=== PATIENT | male | born 1950 | race Two or more races ===

== ENCOUNTER 2018-09-28 22:38 | Emergency (ER) | payer MEDICAID ==
[~2018-09-28] VITALS: Ht 160 cm; Wt 65.8 kg
[2018-09-28 23:43] LABS: BASO % 0 % (0-3); EOS # 0.2 x10^3/uL (0.0-0.7); EOS % 3 % (0-3); HEMATOCRIT 39.7 % (39.0-53.0); HEMOGLOBIN 13.1 g/dL (13.0-17.5); LYMPH # 2.3 x10^3/uL (1.0-4.8); LYMPH % 38 % (24-48); MEAN CORPUSCULAR HEMOGLOBIN 28 pg (25-35); MEAN CORPUSCULAR HGB CONC 33 g/dL (31-37); MEAN CORPUSCULAR VOLUME 84 fL (79-100); MONO # 0.7 x10^3/uL (0.0-1.1); MONO % 11 % (0-9); NEUT # 2.9 x10^3/uL (1.8-7.7); NEUT % 48 % (31-73); PLATELET COUNT 196 x10^3/uL (140-400); RED BLOOD COUNT 4.71 x10^6/uL (4.30-5.70); RED CELL DISTRIBUTION WIDTH 14.9 % (11.5-14.5); WHITE BLOOD COUNT 6.1 x10^3/uL (4.0-11.0)
[2018-09-28 23:54] LABS: CALCIUM 8.8 mg/dL (8.5-10.1); CREATININE 1.3 mg/dL (0.7-1.3); GFR 54.6; POTASSIUM 4.4 mmol/L (3.5-5.1)
[2018-09-29] LABS: ALBUMIN 3.5 g/dL (3.4-5.0); ALBUMIN/GLOBULIN RATIO 0.9 (1.0-1.7); TOTAL BILIRUBIN 0.2 mg/dL (0.2-1.0); TOTAL PROTEIN 7.4 g/dL (6.4-8.2)
[2018-09-29 00:21] LABS: BILIRUBIN,URINE NEGATIVE (NEG); CLARITY,URINE CLEAR; COLOR,URINE YELLOW; NITRITE,URINE NEGATIVE (NEG); PH,URINE 6.5; PROTEIN,URINE NEGATIVE (NEG-TRACE)
[2018-09-29 00:34] LABS: BACTERIA,URINE FEW /HPF (0-FEW); HYALINE CASTS, URINE OCCASIONAL /HPF; RBC,URINE 0 /HPF (0-2); SQUAMOUS EPITHELIAL CELL,UR FEW /LPF; WBC,URINE 0 /HPF (0-4)
--- NOTE | 2018-09-29 03:46 | PHYS DOC ---
Past Medical History Past Medical History: Anxiety, CVA, Dementia, Depression, Diabetes-Type II, High Cholesterol, Prostatitis, Renal Disease, Other Additional Past Medical Histor: Chronic Pain, Chronic Suicidal Ideation (JENS WEBSTER MD) Past Surgical History: Other Additional Past Surgical Histo: Unknown (JENS WEBSTER MD) Alcohol Use: None Drug Use: None (JENS WEBSTER MD) Adult General Chief Complaint Chief Complaint: SUICDAL IDEATION HPI HPI Patient is a 68 year old male with multiple medical problems who is coming in by ambulance from [facility] rehab Apparently yesterday he went to divorce court he had some bad news since that time he has been more agitated intermittently combative required Haldol at the nursing facility and also was saying that he was suicidal apparently suicidal ideation is a common problem for him he has been on intermittent basis is listed on his problem list but it became more significant and more frequent this afternoon and evening he did not have a specific plan. He also has fallen a couple times over the last few days nursing facility rehabilitation facility was not comfortable keeping him there so they sent to the emergency room for evaluation he was complaining of some mild right hip pain. Of note he does have some baseline left sided weakness and numbness due to a prior stroke on the left leg (JENS WEBSTER MD) Review of Systems Review of Systems Limited by the patient's underlying dementia. a [place] cardiac monitor was used to obtain hx and additional hx obtained from [facility] (JENS WEBSTER MD) Current Medications Current Medications Current Medications Medications (Trade) Dose Ordered Sig/Noah Start Time Stop Time Status Last Admin Dose Admin Olanzapine (ZyPREXA ZYDIS) 10 mg 1X ONCE 09/28/18 23:30 09/28/18 23:31 DC 09/28/18 00:10 10 MG (KEITHLY,HILARY T DO) Allergies Allergies Allergies Coded Allergies Type Severity Reaction Last Updated Verified No Known Drug Allergies 09/28/18 No (KEITHLY,HILARY T DO) Physical Exam Physical Exam Constitutional: Well developed, well nourished, no acute distress, non-toxic appearance. [] HENT: Normocephalic, atraumatic, bilateral external ears normal, oropharynx moist, no oral exudates, nose normal. [] Eyes: PERRLA, EOMI, conjunctiva normal, no discharge. [] Neck: Normal range of motion, no tenderness, supple, no stridor. [] Cardiovascular:Heart rate regular rhythm, no murmur [] Lungs & Thorax: Bilateral breath sounds clear to auscultation [] Abdomen: Bowel sounds normal, soft, no tenderness, no masses, no pulsatile masses. [] Skin: Warm, dry, no erythema, no rash. [] Back:paraspinous and imdline ttp around l2-3 Extremities: No tenderness, no cyanosis, no clubbing, ROM intact, no edema. [] rom of the left leg is limited by underlying cva weakness. rom right leg intact Neurologic: Alert , normal motor function, normal sensory function, no focal deficits noted. [] Psychologic: odd affect si with no planauto affect patient (JENS WEBSTER MD) Current Patient Data Vital Signs Vital Signs Date Time Temp Pulse Resp B/P (MAP) Pulse Ox O2 Delivery O2 Flow Rate FiO2 09/29/18 09:14 74 12 138/88 (105) 100 High Flow Nasal Cannula 2.0 09/28/18 22:38 98.2 98.2 (JOSEPHINE,HILARY T DO) Lab Values Laboratory Tests Test 09/28/18 23:35 09/29/18 00:05 White Blood Count 6.1 x10^3/uL (4.0-11.0) Red Blood Count 4.71 x10^6/uL (4.30-5.70) Hemoglobin 13.1 g/dL (13.0-17.5) Hematocrit 39.7 % (39.0-53.0) Mean Corpuscular Volume 84 fL (79-100) Mean Corpuscular Hemoglobin 28 pg (25-35) Mean Corpuscular Hemoglobin Concent 33 g/dL (31-37) Red Cell Distribution Width 14.9 % (11.5-14.5) H Platelet Count 196 x10^3/uL (140-400) Neutrophils (%) (Auto) 48 % (31-73) Lymphocytes (%) (Auto) 38 % (24-48) Monocytes (%) (Auto) 11 % (0-9) H Eosinophils (%) (Auto) 3 % (0-3) Basophils (%) (Auto) 0 % (0-3) Neutrophils # (Auto) 2.9 x10^3/uL (1.8-7.7) Lymphocytes # (Auto) 2.3 x10^3/uL (1.0-4.8) Monocytes # (Auto) 0.7 x10^3/uL (0.0-1.1) Eosinophils # (Auto) 0.2 x10^3/uL (0.0-0.7) Basophils # (Auto) 0.0 x10^3/uL (0.0-0.2) Sodium Level 141 mmol/L (136-145) Potassium Level 4.4 mmol/L (3.5-5.1) Chloride Level 105 mmol/L (98-107) Carbon Dioxide Level 27 mmol/L (21-32) Anion Gap 9 (6-14) Blood Urea Nitrogen 18 mg/dL (8-26) Creatinine 1.3 mg/dL (0.7-1.3) Estimated GFR (Cockcroft-Gault) 54.6 BUN/Creatinine Ratio 14 (6-20) Glucose Level 120 mg/dL (70-99) H Calcium Level 8.8 mg/dL (8.5-10.1) Total Bilirubin 0.2 mg/dL (0.2-1.0) Aspartate Amino Transferase (AST) 10 U/L (15-37) L Alanine Aminotransferase (ALT) 14 U/L (16-63) L Alkaline Phosphatase 67 U/L (46-116) Total Protein 7.4 g/dL (6.4-8.2) Albumin 3.5 g/dL (3.4-5.0) Albumin/Globulin Ratio 0.9 (1.0-1.7) L Urine Collection Type Unknown Urine Color Yellow Urine Clarity Clear Urine pH 6.5 Urine Specific [place] 1.010 Urine Protein Negative mg/dL (NEG-TRACE) Urine Glucose (UA) Negative mg/dL (NEG) Urine Ketones (Stick) Negative mg/dL (NEG) Urine Blood Negative (NEG) Urine Nitrite Negative (NEG) Urine Bilirubin Negative (NEG) Urine Urobilinogen Dipstick 1.0 mg/dL (0.2 mg/dL) Urine Leukocyte Esterase Negative (NEG) Urine RBC 0 /HPF (0-2) Urine WBC 0 /HPF (0-4) Urine Squamous Epithelial Cells Few /LPF Urine Bacteria Few /HPF (0-FEW) Urine Hyaline Casts Occasional /HPF Laboratory Tests 09/28/18 23:35 Laboratory Tests 09/28/18 23:35 (HILARY BURTON DO) EKG EKG [] (JENS WEBSTER MD) Radiology/Procedures Radiology/Procedures [] (JENS WEBSTER MD) Impressions: Monitor patient lumbar spine x-ray as well as pelvis x-ray and right hip x-ray was negative acute no obvious fracture was identified. (JENS WEBSTER MD) Course & Med Decision Making Course & Med Decision Making Pertinent Labs and Imaging studies reviewed. (See chart for details) []68 yo m mmp as noted above biba with increasing suicidal ideation frequent falls, medically clear in the emergency room labs are stable vital signs are stable x-ray imaging showed no fracture. Elbert from [facility] came in at this time patient is being presented to [facility] psych unit pt seen by elbert from [facility], awaiting placement s/o to [facility] at 6 am (JENS WEBSTER MD) Course & Med Decision Making 0944: Assumes care at approximately [address] Webster. Patient has been calm and cooperative. Patient has not require any further medications. Patient was evaluated again by Elbert from [facility]. Pt is not suicidal. Pt is alert to self/place. Elbert states that there was difficulty in evaluating thept last night 2/2 recent Haldol dosing/lack of dentures and language barrier. Pt is more alert and the interpreting process was significantly smoother. No acute medical complaints. Continued stable vital signs. No fractures. Not suicidal. Stable for d/c back to SNF. (HILARY BURTON DO) Dragon Disclaimer Dragon Disclaimer This electronic medical record was generated, in whole or in part, using a voice recognition dictation system. (JENS WEBSTER MD) Departure Departure Impression: Primary Impression: Suicidal ideation Additional Impression: Depression Disposition: 03 TRANSFER SNF Condition: IMPROVED Referrals: LISA HENSLEY MD (PCP) Patient Instructions: Depression, Adult Additional Instructions: Thank you for coming to [facility]. Please read the attached handouts. Please follow-up with your primary care physician. Return to the ER if your symptoms worsen or you have any other concerns. Problem Qualifiers JENS WEBSTER MD Sep 29, 2018 03:46 HILARY BURTON DO Sep 29, 2018 09:48
--- NOTE | 2018-09-29 05:40 | RAD ---
AP radiograph of the pelvis to include AP and lateral radiographs of the right hip 09/28/2018 CLINICAL HISTORY: Pelvic and right hip trauma. An AP digital radiograph of the pelvis was obtained. AP and lateral radiographs of the right hip were obtained. No pelvic bone fracture is seen. Both hips are intact. Mild to moderate degenerative changes are seen involving both hips, left greater than right. Calcification of the common iliac arteries and their branches is noted. IMPRESSION: No fracture or dislocation is seen. Electronically signed by: Woodrow Meade MD (09/29/2018 5:37 AM) [facility]
--- NOTE | 2018-09-29 05:42 | RAD ---
Three-view lumbar spine radiographs 09/28/2018 CLINICAL HISTORY: Trauma with low back pain. AP and 2 lateral digital radiographs of the lumbar spine were obtained. Minimal S-shaped curvature of the thoracolumbar spine is seen. No fracture or subluxation of the lumbar vertebrae seen. Degenerative changes are seen involving the facet joints throughout the mid and lower lumbar spine. Atherosclerotic calcification of the abdominal aorta and its branches is noted. IMPRESSION: No fracture or subluxation of the lumbar vertebrae is seen. Electronically signed by: Woodrow Meade MD (09/29/2018 5:39 AM) [facility]
--- NOTE | 2018-09-29 10:18 | PDOC1 ---
History and Physical Date of Admission Date of Admission DATE: 09/29/18 TIME: 10:17 Identification/Chief Complaint Chief Complaint seen in ER FOR DEPRESSION , HE WENT TO divorce court he had some bad news since that time he has been more agitated intermittently combative required Haldol at the nursing facility and also was saying that he was suicidal suicidal ideation is a common problem for him he has been on intermittent basis is listed on his problem list but it became more significant and more frequent this afternoon and evening he did not have a specific plan. has fallen a couple times over the last few days nursing facility rehabilitation facility psych evciaran has cleared for placement, not admitted, no charge Past Medical History Past Medical History Past Medical History: Anxiety, CVA, Dementia, Depression, Diabetes-Type II, High Cholesterol, Prostatitis, Renal Disease, Other Additional Past Medical Histor: Chronic Pain, Chronic Suicidal Ideation Current Problem List Problem List Problems Medical Problems: (1) Depression Status: Acute (2) Suicidal ideation Status: Acute Current Medications Current Medications Current Medications Olanzapine (ZyPREXA ZYDIS) 10 mg 1X ONCE PO Last administered on 09/28/18at 00:10; Start 09/28/18 at 23:30; Stop 09/28/18 at 23:31; Status DC Allergies Allergies: Coded Allergies: No Known Drug Allergies (Unverified , 09/28/18) Vitals Vitals Vital Signs Date Time Temp Pulse Resp B/P (MAP) Pulse Ox O2 Delivery O2 Flow Rate FiO2 09/29/18 10:12 121/72 (88) 100 High Flow Nasal Cannula 2.0 09/29/18 09:14 74 12 09/28/18 22:38 98.2 98.2 Labs Labs Laboratory Tests Test 09/28/18 23:35 09/29/18 00:05 White Blood Count 6.1 x10^3/uL (4.0-11.0) Red Blood Count 4.71 x10^6/uL (4.30-5.70) Hemoglobin 13.1 g/dL (13.0-17.5) Hematocrit 39.7 % (39.0-53.0) Mean Corpuscular Volume 84 fL (79-100) Mean Corpuscular Hemoglobin 28 pg (25-35) Mean Corpuscular Hemoglobin Concent 33 g/dL (31-37) Red Cell Distribution Width 14.9 % (11.5-14.5) Platelet Count 196 x10^3/uL (140-400) Neutrophils (%) (Auto) 48 % (31-73) Lymphocytes (%) (Auto) 38 % (24-48) Monocytes (%) (Auto) 11 % (0-9) Eosinophils (%) (Auto) 3 % (0-3) Basophils (%) (Auto) 0 % (0-3) Neutrophils # (Auto) 2.9 x10^3/uL (1.8-7.7) Lymphocytes # (Auto) 2.3 x10^3/uL (1.0-4.8) Monocytes # (Auto) 0.7 x10^3/uL (0.0-1.1) Eosinophils # (Auto) 0.2 x10^3/uL (0.0-0.7) Basophils # (Auto) 0.0 x10^3/uL (0.0-0.2) Sodium Level 141 mmol/L (136-145) Potassium Level 4.4 mmol/L (3.5-5.1) Chloride Level 105 mmol/L (98-107) Carbon Dioxide Level 27 mmol/L (21-32) Anion Gap 9 (6-14) Blood Urea Nitrogen 18 mg/dL (8-26) Creatinine 1.3 mg/dL (0.7-1.3) Estimated GFR (Cockcroft-Gault) 54.6 BUN/Creatinine Ratio 14 (6-20) Glucose Level 120 mg/dL (70-99) Calcium Level 8.8 mg/dL (8.5-10.1) Total Bilirubin 0.2 mg/dL (0.2-1.0) Aspartate Amino Transf (AST/SGOT) 10 U/L (15-37) Alanine Aminotransferase (ALT/SGPT) 14 U/L (16-63) Alkaline Phosphatase 67 U/L (46-116) Total Protein 7.4 g/dL (6.4-8.2) Albumin 3.5 g/dL (3.4-5.0) Albumin/Globulin Ratio 0.9 (1.0-1.7) Urine Collection Type Unknown Urine Color Yellow Urine Clarity Clear Urine pH 6.5 Urine Specific [place] 1.010 Urine Protein Negative mg/dL (NEG-TRACE) Urine Glucose (UA) Negative mg/dL (NEG) Urine Ketones (Stick) Negative mg/dL (NEG) Urine Blood Negative (NEG) Urine Nitrite Negative (NEG) Urine Bilirubin Negative (NEG) Urine Urobilinogen Dipstick 1.0 mg/dL (0.2 mg/dL) Urine Leukocyte Esterase Negative (NEG) Urine RBC 0 /HPF (0-2) Urine WBC 0 /HPF (0-4) Urine Squamous Epithelial Cells Few /LPF Urine Bacteria Few /HPF (0-FEW) Urine Hyaline Casts Occasional /HPF Laboratory Tests Test 09/28/18 23:35 09/29/18 00:05 White Blood Count 6.1 x10^3/uL (4.0-11.0) Red Blood Count 4.71 x10^6/uL (4.30-5.70) Hemoglobin 13.1 g/dL (13.0-17.5) Hematocrit 39.7 % (39.0-53.0) Mean Corpuscular Volume 84 fL (79-100) Mean Corpuscular Hemoglobin 28 pg (25-35) Mean Corpuscular Hemoglobin Concent 33 g/dL (31-37) Red Cell Distribution Width 14.9 % (11.5-14.5) Platelet Count 196 x10^3/uL (140-400) Neutrophils (%) (Auto) 48 % (31-73) Lymphocytes (%) (Auto) 38 % (24-48) Monocytes (%) (Auto) 11 % (0-9) Eosinophils (%) (Auto) 3 % (0-3) Basophils (%) (Auto) 0 % (0-3) Neutrophils # (Auto) 2.9 x10^3/uL (1.8-7.7) Lymphocytes # (Auto) 2.3 x10^3/uL (1.0-4.8) Monocytes # (Auto) 0.7 x10^3/uL (0.0-1.1) Eosinophils # (Auto) 0.2 x10^3/uL (0.0-0.7) Basophils # (Auto) 0.0 x10^3/uL (0.0-0.2) Sodium Level 141 mmol/L (136-145) Potassium Level 4.4 mmol/L (3.5-5.1) Chloride Level 105 mmol/L (98-107) Carbon Dioxide Level 27 mmol/L (21-32) Anion Gap 9 (6-14) Blood Urea Nitrogen 18 mg/dL (8-26) Creatinine 1.3 mg/dL (0.7-1.3) Estimated GFR (Cockcroft-Gault) 54.6 BUN/Creatinine Ratio 14 (6-20) Glucose Level 120 mg/dL (70-99) Calcium Level 8.8 mg/dL (8.5-10.1) Total Bilirubin 0.2 mg/dL (0.2-1.0) Aspartate Amino Transf (AST/SGOT) 10 U/L (15-37) Alanine Aminotransferase (ALT/SGPT) 14 U/L (16-63) Alkaline Phosphatase 67 U/L (46-116) Total Protein 7.4 g/dL (6.4-8.2) Albumin 3.5 g/dL (3.4-5.0) Albumin/Globulin Ratio 0.9 (1.0-1.7) Urine Collection Type Unknown Urine Color Yellow Urine Clarity Clear Urine pH 6.5 Urine Specific [place] 1.010 Urine Protein Negative mg/dL (NEG-TRACE) Urine Glucose (UA) Negative mg/dL (NEG) Urine Ketones (Stick) Negative mg/dL (NEG) Urine Blood Negative (NEG) Urine Nitrite Negative (NEG) Urine Bilirubin Negative (NEG) Urine Urobilinogen Dipstick 1.0 mg/dL (0.2 mg/dL) Urine Leukocyte Esterase Negative (NEG) Urine RBC 0 /HPF (0-2) Urine WBC 0 /HPF (0-4) Urine Squamous Epithelial Cells Few /LPF Urine Bacteria Few /HPF (0-FEW) Urine Hyaline Casts Occasional /HPF Images Images Three-view lumbar spine radiographs 09/28/2018 CLINICAL HISTORY: Trauma with low back pain. AP and 2 lateral digital radiographs of the lumbar spine were obtained. Minimal S-shaped curvature of the thoracolumbar spine is seen. No fracture or subluxation of the lumbar vertebrae seen. Degenerative changes are seen involving the facet joints throughout the mid and lower lumbar spine. Atherosclerotic calcification of the abdominal aorta and its branches is noted. IMPRESSION: No fracture or subluxation of the lumbar vertebrae is seen. Electronically signed by: Woodrow Meade MD (09/29/2018 5:39 AM) [facility] VTE Prophylaxis Ordered VTE Prophylaxis Devices: Yes VTE Pharmacological Prophylaxi: Yes Assessment/Plan Assessment/Plan impression stress and depression, not suicidal, not admitted here plan d/c to facility per ER OVI BULLOCK MD Sep 29, 2018 10:18
[2018-09-29 10:28] VITALS: BP 126/76
== END 2018-09-29 11:16 | disposition home or self-care (01) ==
LOC: ER 22:38
DX: R45.851 Suicidal ideations (principal); F32.9 Major depressive disorder, single episode, unspecified; G89.29 Other chronic pain; R53.1 Weakness; M25.551 Pain in right hip; M54.5 Low back pain; F41.9 Anxiety disorder, unspecified; E11.9 Type 2 diabetes mellitus without complications; E78.00 Pure hypercholesterolemia, unspecified; Z86.73 Personal history of transient ischemic attack (TIA), and cerebral infarction without residual deficits
CPT/HCPCS: 36415; 72100; 73502; 80053; 81001; 85025; 99285